=== PATIENT | female | born 1960 | race Caucasian/White ===

== ENCOUNTER → 2016-05-27 | Outpatient (CLI) | payer MEDICARE ==
[~2016-05-27] MED LIST: LANTUS100 UNIT/1 SC; LOPRESSOR100 MG PO
== END ==
DX: M25.562 Pain in left knee (principal); Z88.8 Allergy status to other drugs, medicaments and biological substances
CPT/HCPCS: 73560

== ENCOUNTER → 2016-07-10 | Outpatient (CLI) | payer MEDICARE | LOC: KOH-I 07-09 12:15 | DX: M25.562 Pain in left knee (principal); S83.232A Complex tear of medial meniscus, current injury, left knee, initial encounter | CPT/HCPCS: 73721 ==

== ENCOUNTER → 2016-08-27 | Outpatient (CLI) | payer MEDICARE | LOC: RAD 12:39 | DX: Z01.818 Encounter for other preprocedural examination (principal) | CPT/HCPCS: 71020 ==